=== PATIENT | female | born 1930 | race Hispanic/Latino ===

== ENCOUNTER 2018-02-06 17:36 | Emergency (ER) | payer MEDICARE, BC, MEDICAID ==
[2018-02-06 18:25] LABS: #Basophils 0.1 thou/uL (0.0-0.2); #Eosinphils 0.1 thou/uL (0.0-0.7); #Monocytes 0.3 thou/uL (0.11-0.59); #Neutrophils 2.8 thou/uL (1.40-6.50); %Basophils 1.4 % (0.0-1.0); %Eosinophils 2.5 % (0.0-10.0); %Lymphocytes 23.7 % (21.0-51.0); %Monocytes 7.8 % (0.0-10.0); %Neutrophils 64.7 % (42.0-75.0); Hemoglobin 11.6 g/dL (12.0-16.0); Mean Corpuscular HGB CONC 34.2 g/dL (32.0-36.0); Mean Corpuscular Hemoglobin 28.9 pg (27.0-31.0); Mean Corpuscular Volume 84.6 fL (78.0-98.0); Mean Platelet Volume 7.7 fL (7.4-10.4); Platelet Count 227 thou/uL (130-400); RBC Distribution Width 11.9 % (11.5-14.5); Red Blood Cell (RBC) Count 3.99 mill/uL (4.20-5.40); White Blood Cell (WBC) Count 4.3 thou/uL (4.8-10.8)
[2018-02-06 18:47] LABS: Bilirubin Moderate (Negative); Blood, Urine Negative (Negative); Clarity CLOUDY (Clear); Glucose, Urine (Dipstick) Negative (Negative); Leukocyte Trace (Negative); Nitrite Negative (Negative); Protein, Urine (Dipstick) 30 mg/dL (Neg-Trace); Specific Gravity, Urine 1.021 (1.002-1.036); pH, Urine 5.5 (5.0-9.0)
[2018-02-06 18:48] LABS: ALT (SGPT) 12 U/L (8-55); AST (SGOT) 14 U/L (5-34); Albumin 4.3 g/dL (3.4-4.8); Alkaline Phosphatase 93 U/L (40-150); Anion Gap 16 mmol/L (10-20); BUN (Urea Nitrogen) 39 mg/dL (9.8-20.1); Bilirubin, Total 0.6 mg/dL (0.2-1.2); CK (CPK) 211 U/L (29-168); Calc. Creatinine Clearance 0 mL/min (70-130); Calcium 9.2 mg/dL (7.8-10.44); Carbon Dioxide 21 mmol/L (23-31); Chloride 101 mmol/L (98-107); Estimated GFR-MDRD 17; Globulin 3.2 g/dL (2.4-3.5); Glucose 113 mg/dL (83-110); Lipase 37 U/L (8-78); Potassium 3.3 mmol/L (3.5-5.1); Protein, Total 7.5 g/dL (6.0-8.3); Sodium 135 mmol/L (136-145)
[2018-02-06 18:50] LABS: CKMB 5.8 ng/mL (0-6.6); Troponin I 0.015 ng/mL (< 0.028)
[2018-02-06 18:50] LABS: Bacteria/HPF None Seen HPF (None Seen); RBC/HPF 0-3 HPF (0-3); WBC/HPF 0-3 HPF (0-3)
[2018-02-06 18:51] LABS: Hyaline Casts/LPF 0-3 HYALINE CAST LPF (0-3 Hyaline); Manual Microscopic Reviewed? No Path Casts Seen; Renal Epithelial None Seen HPF (0-3); Transitional Epithelial NONE SEEN HPF (0-3)
--- NOTE | 2018-02-06 19:09 | RAD ---
CHEST ONE VIEW: History: Altered mental status. Comparison: 02-07-14 FINDINGS: There appears to be elevation of the right hemidiaphragm with air attenuation underneath the right he midiaphragm secondary to bowel air. There is atherosclerosis of the aorta. Chronic change lung parenc hyma without consolidation or mass. No pleural effusion. No pneumothorax or osseous abnormality. IMPRESSION: No acute cardiopulmonary process. POS: [facility]
--- NOTE | 2018-02-06 19:44 | CT ---
HEAD CT WITHOUT CONTRAST: History: Dementia, altered mental status. Comparison: None. FINDINGS: Calvarium is intact. Adequate aeration of the sinuses and mastoid air cells. No parenchymal hemorrhage. No extraaxial hematoma. No midline shift. Basilar cisterns are patent. Age appropriate atrophy. Cortical payne white matter differentiation preserved. There are chronic small vessel ischemic changes of the white matter. No evidence of hydrocephalus. Cavernous carotid atherosclerosis is noted. IMPRESSION: 1. No acute intracranial process. 2. Age appropriate atrophy. 3. Chronic small vessel ischemic changes of the white matter. POS: [facility]
== END 2018-02-06 19:58 | disposition home or self-care (01) ==
LOC: ERS 17:36
DX: R53.1 Weakness (principal); F03.90 Unspecified dementia, unspecified severity, without behavioral disturbance, psychotic disturbance, mood disturbance, and anxiety; N28.9 Disorder of kidney and ureter, unspecified
CPT/HCPCS: 36415; 51701; 70450; 71045; 80053; 81003; 81015; 82140; 82553; 83690; 83880; 84443; 84484; 85025; 93005; A4353

== ENCOUNTER 2018-08-25 13:17 | Emergency (ER) | payer MEDICARE, BC, MEDICAID ==
[2018-08-25 13:55] LABS: #Basophils 0.1 thou/uL (0.0-0.2); #Eosinphils 0.1 thou/uL (0.0-0.7); #Lymphocytes 1.7 thou/uL (1.20-3.40); #Monocytes 0.3 thou/uL (0.11-0.59); #Neutrophils 4.8 thou/uL (1.40-6.50); %Basophils 1.7 % (0.0-1.0); %Eosinophils 1.7 % (0.0-10.0); %Lymphocytes 23.9 % (21.0-51.0); %Monocytes 4.5 % (0.0-10.0); %Neutrophils 68.3 % (42.0-75.0); Hemoglobin 11.6 g/dL (12.0-16.0); Mean Corpuscular Hemoglobin 29.4 pg (27.0-31.0); Mean Corpuscular Volume 89.1 fL (78.0-98.0); Mean Platelet Volume 8.1 fL (7.4-10.4); Platelet Count 223 thou/uL (130-400); RBC Distribution Width 11.9 % (11.5-14.5); Red Blood Cell (RBC) Count 3.93 mill/uL (4.20-5.40); White Blood Cell (WBC) Count 7.1 thou/uL (4.8-10.8)
[2018-08-25 14:24] LABS: ALT (SGPT) 23 U/L (8-55); AST (SGOT) 18 U/L (5-34); Alkaline Phosphatase 50 U/L (40-150); Anion Gap 12 mmol/L (10-20); BUN (Urea Nitrogen) 25 mg/dL (9.8-20.1); Bilirubin, Total 0.7 mg/dL (0.2-1.2); Calc. Creatinine Clearance 0 mL/min (70-130); Calcium 9.7 mg/dL (7.8-10.44); Carbon Dioxide 26 mmol/L (23-31); Chloride 106 mmol/L (98-107); Estimated GFR-MDRD 35; Globulin 2.6 g/dL (2.4-3.5); Glucose 82 mg/dL (83-110); Lipase 33 U/L (8-78); Potassium 4.3 mmol/L (3.5-5.1); Protein, Total 6.6 g/dL (6.0-8.3); Sodium 140 mmol/L (136-145)
[2018-08-25 14:46] LABS: Bilirubin Negative (Negative); Blood, Urine Negative (Negative); Clarity CLEAR (Clear); Glucose, Urine (Dipstick) Negative (Negative); Leukocyte Negative (Negative); Nitrite Negative (Negative); Protein, Urine (Dipstick) Negative (Neg-Trace); Specific Gravity, Urine 1.019 (1.002-1.036); pH, Urine 6.5 (5.0-9.0)
--- NOTE | 2018-08-25 15:43 | CT ---
ABDOMEN AND PELVIC CT SCAN WITHOUT IV CONTRAST: 08/25/18 HISTORY: Abdominal pain and abdominal distention. FINDINGS: Small bilateral pleural effusions. Small to moderate pericardial effusion. Status post cholecystecto my. The visualized liver, pancreas, spleen and adrenal glands appear unremarkable. Small hiatal herni a. Multiple bilateral renal cysts including some hemorrhagic cysts with some postop calcific scarring in the lower pole region of the left kidney. Mild to moderate bilateral upper collecting system dila tation which could be secondary to the very severely dilated fecal filled rectum measuring up to 10 c m in diameter. No evidence for renal calculus or acute obstructing ureteral calculus. There is marked gaseous distention and dilatation of the right colon and transverse colon and portions of the sigmoi d colon with nondilated left colon and sigmoid colon with extensive diverticulosis without evidence f or acute diverticulitis. Minimal scattered free fluid. Stable right hip healed fracture with some res ultant deformity. IMPRESSION: 1. Very extensive solid fecal material within a markedly dilated rectum. Gaseous and minimal flu id distention and dilatation of the cecum and right colon, transverse colon as well as portions of th e sigmoid colon with nondilated left colon with extensive left colon and proximal sigmoid colon diver ticulosis without evidence for acute diverticulitis. Bilateral renal cysts including some hemorrhagic cysts without evidence for renal calculus. 2. Mild dilatation of the right and left renal upper collecting systems without an obstructing c alculus, possibly related to some compression from the severely dilated fecal filled rectum. Small bi lateral pleural effusions and small to moderate pericardial effusion. 3. Small hiatal hernia. 4. Minimal free intraperitoneal fluid. Other findings as above. POS: [facility]
--- NOTE | 2018-08-27 15:09 | EKG ---
Test Reason : Blood Pressure : / mmHG Vent. Rate : 070 BPM Atrial Rate : 070 BPM P-R Int : 220 ms QRS Dur : 110 ms QT Int : 452 ms P-R-T Axes : 039 036 021 degrees QTc Int : 488 ms Sinus rhythm with 1st degree A-V block with frequent Premature ventricular complexes Right bundle branch block Possible Inferior infarct , age undetermined Abnormal ECG Confirmed by SAQIB PANG ([id number]), movie editor SELENE VENTURA ([id number]) on 08/27/2018 3:08:58 PM Referred By: Confirmed By:SAQIB PANG
== END 2018-08-25 17:30 | disposition home or self-care (01) ==
LOC: ERS 13:17
DX: K64.4 Residual hemorrhoidal skin tags (principal); K59.00 Constipation, unspecified; Z79.899 Other long term (current) drug therapy
CPT/HCPCS: 36415; 51701; 74176; 80053; 81003; 83690; 85025; 93005; A4353

== ENCOUNTER 2018-08-30 14:05 | Emergency (ER) | payer MEDICARE, BC, MEDICAID ==
[2018-08-30] MEDS ORDERED: Fleet Enema 133 ML BOT PR SCH (14:45)
== END 2018-08-30 19:00 | disposition home or self-care (01) ==
LOC: ERS 14:05
DX: K59.00 Constipation, unspecified (principal); K64.9 Unspecified hemorrhoids
CPT/HCPCS: 99283

== ENCOUNTER 2018-11-21 20:53 | Inpatient (IN) | payer MEDICARE, BC, MEDICAID ==
[~2018-11-21 20:53] MED LIST: ISOVUE-370 76%-LOCM 1 ML ONE
[2018-11-21 21:39] LABS: #Basophils 0.1 thou/uL (0.0-0.2); #Eosinphils 0.1 thou/uL (0.0-0.7); #Lymphocytes 1.8 thou/uL (1.20-3.40); #Monocytes 0.4 thou/uL (0.11-0.59); #Neutrophils 3.3 thou/uL (1.40-6.50); %Basophils 0.9 % (0.0-1.0); %Lymphocytes 32.1 % (21.0-51.0); %Monocytes 6.4 % (0.0-10.0); %Neutrophils 58.6 % (42.0-75.0); Hemoglobin 10.9 g/dL (12.0-16.0); Mean Corpuscular HGB CONC 32.6 g/dL (32.0-36.0); Mean Corpuscular Hemoglobin 29.1 pg (27.0-31.0); Mean Corpuscular Volume 89.1 fL (78.0-98.0); Mean Platelet Volume 7.4 fL (7.4-10.4); Platelet Count 223 thou/uL (130-400); RBC Distribution Width 12.2 % (11.5-14.5); Red Blood Cell (RBC) Count 3.75 mill/uL (4.20-5.40); White Blood Cell (WBC) Count 5.6 thou/uL (4.8-10.8)
[2018-11-21 22:01] LABS: ALT (SGPT) 16 U/L (8-55); AST (SGOT) 21 U/L (5-34); Alkaline Phosphatase 51 U/L (40-150); Anion Gap 11 mmol/L (10-20); BUN (Urea Nitrogen) 19 mg/dL (9.8-20.1); Bilirubin, Total 0.5 mg/dL (0.2-1.2); Calc. Creatinine Clearance 0 mL/min (70-130); Calcium 9.3 mg/dL (7.8-10.44); Carbon Dioxide 31 mmol/L (23-31); Chloride 102 mmol/L (98-107); Estimated GFR-MDRD 43; Globulin 2.7 g/dL (2.4-3.5); Glucose 113 mg/dL (83-110); Potassium 3.2 mmol/L (3.5-5.1); Protein, Total 6.7 g/dL (6.0-8.3); Sodium 141 mmol/L (136-145)
--- NOTE | 2018-11-21 23:26 | CT ---
CT ABDOMEN WITH CONTRAST CT PELVIS WITH CONTRAST: DATE: 11/21/2018 10:32 PM HISTORY: 88-year-old female with abdominal distention, worsening. COMPARISON: 09/22/2018 TECHNIQUE: IV injection of iodinated contrast media: administered. Oral contrast media:Not administered FINDINGS: Again noted is the severe gaseous distention of the colon occupying a large portions of the abdominal cavity and pelvic cavity. The exception is that the descending colon is collapsed. There is gas and fluid within the lumen of the severely dilated portions of colon. This makes it difficult to eval uate for pneumoperitoneum. Again demonstrated is the circumferential mural thickening of the rectum, but this has improved. The associated perirectal fat stranding has also improved. There is prolapse of the rectum through the anus. Small pericardial effusion, slightly larger since previous CT. Abdominal organs are displaced and com pressed by the severe dilation of the colon. No other pathology identified involving the liver, spleen, pancreas, or adrenals. No hydronephrosis. Moderately large right renal cyst. Urinary bladder wall thickness at upper limits of normal. Diffuse anasarca. Heavy atherosclerotic callus location of abdominal aorta and iliac arteries without aneurysm. No small bowel dilation. IMPRESSION: 1. Severely distended colon. 2. Proctitis has improved since September. 3. Rectal prolapse.
[2018-11-22] MEDS ORDERED: Ondansetron ODT 4 MG TAB SL PRN (01:56)
[2018-11-22] MEDS ORDERED: Ondansetron PF 4 MG/2 ML Vial IVP PRN (01:56)
[2018-11-22] MEDS ORDERED: D5 1/2 NS w/20 mEq KCL 1,000 ML IV SCH (02:00)
[2018-11-22] MEDS ORDERED: Acetaminophen 325 MG TAB PO PRN (02:28)
[2018-11-22] MEDS ORDERED: Acetaminophen 500 MG TAB PO PRN (02:29)
[2018-11-22] MEDS ORDERED: ALPRAZolam 0.5 MG TAB PO PRN (02:29)
[2018-11-22 04:11] LABS: #Basophils 0.1 thou/uL (0.0-0.2); #Eosinphils 0.1 thou/uL (0.0-0.7); #Lymphocytes 1.4 thou/uL (1.20-3.40); #Monocytes 0.5 thou/uL (0.11-0.59); #Neutrophils 4.5 thou/uL (1.40-6.50); %Basophils 0.9 % (0.0-1.0); %Eosinophils 2.3 % (0.0-10.0); %Lymphocytes 21.5 % (21.0-51.0); %Neutrophils 68.3 % (42.0-75.0); Hemoglobin 10.9 g/dL (12.0-16.0); Mean Corpuscular HGB CONC 32.5 g/dL (32.0-36.0); Mean Corpuscular Hemoglobin 28.9 pg (27.0-31.0); Mean Corpuscular Volume 89.1 fL (78.0-98.0); Platelet Count 215 thou/uL (130-400); RBC Distribution Width 12.1 % (11.5-14.5); Red Blood Cell (RBC) Count 3.77 mill/uL (4.20-5.40); White Blood Cell (WBC) Count 6.5 thou/uL (4.8-10.8)
[2018-11-22 04:37] LABS: Anion Gap 13 mmol/L (10-20); BUN (Urea Nitrogen) 18 mg/dL (9.8-20.1); Calc. Creatinine Clearance 28 mL/min (70-130); Calcium 9.1 mg/dL (7.8-10.44); Carbon Dioxide 23 mmol/L (23-31); Chloride 106 mmol/L (98-107); Estimated GFR-MDRD 48; Glucose 117 mg/dL (83-110); Potassium 3.4 mmol/L (3.5-5.1); Sodium 140 mmol/L (136-145)
[2018-11-22] MEDS: Levothyroxine Sodium 75 MCG TAB PO SCH (05:39)
--- NOTE | 2018-11-22 05:39 | HP ---
PRIMARY CARE PHYSICIAN: CHIEF COMPLAINT: Abdominal pain. HISTORY OF PRESENT ILLNESS: This is an 88-year-old female with past medical history of Carroll syndrome, hypothyroidism, dementia, depression, and hypertension, came to the hospital after having abdominal distention, transferred from [facility], it looks like it has been going on for the past six months and had worsen in the past 2 weeks till the point that today is very distended. The family denies any nausea or vomiting. No other significant symptoms were reported. The patient is not able to give any further information. REVIEW OF SYSTEMS: Unable to obtain. The patient has dementia, not able to give a history. PAST MEDICAL HISTORY: As mentioned in the HPI. PAST SURGICAL HISTORY: The patient is unable to give history. PSYCHIATRIC HISTORY: The patient has dementia. 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 KNOWN ALLERGIES: No known drug allergies. REPORTED MEDICATIONS: 1. Donepezil. 2. Hydrochlorothiazide. 3. Levothyroxine. 4. Losartan-hydrochlorothiazide. 5. Omeprazole. 6. Xanax. 7. Escitalopram. 8. Seroquel. 9. Trazodone. 10. Acetaminophen. 11. Fleet enema. 12. Anusol. PHYSICAL EXAMINATION: VITAL SIGNS: Blood pressure 176/92 with heart rate 66, respiratory rate was 19, oxygen saturation was 97% on room air, and temperature was 97.8. GENERAL APPEARANCE: The patient is confused. The patient has dementia. HEENT: Eyes, normal conjunctivae. Moist oral mucosa. Anicteric. No JVD. RESPIRATORY: Bilateral air entry. No rales. No wheezes. Symmetric expansion. CARDIOVASCULAR: Normal rate. Regular rhythm. No murmurs. No gallops. No edema. ABDOMEN: Very distended with tympanic sounds. Bowel sounds are present, tympanic. MUSCULOSKELETAL: Baseline range of motion and strength. SKIN: Warm and intact. No pallor. No rash. No redness. Capillary refill seems to be intact. NEURO: No evidence of any new focal weakness. Unable to fully explore. The patient has dementia. PSYCH: The patient has dementia. The patient is confused. IMAGING: EKG was reviewed. The patient has normal sinus rhythm with a rate of 65 with first-degree AV block, incomplete RBBB. Abdomen and pelvis CT was done. The patient has severely distended colon. Proctitis has improved since September and rectal prolapse. LABORATORY DATA: Reviewed. The patient has white count 5.6, hemoglobin 10.9, MCV 89.1, and platelet count 223. Sodium 141, potassium 3.2, chloride 102, carbon dioxide 31, anion gap 11, creatinine 1.19, GFR 43, glucose 113, calcium 9.3, and total bilirubin 0.5. LFTs were negative. Albumin 4.0. ASSESSMENT AND PLAN: The patient will be placed in the hospital with following medical problems; 1. 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 The patient has severe distention today. Dr. Perez was consulted and will see the patient in the morning. We will follow recommendations. 2. History of dementia. The patient will need supportive care as inpatient. 3. Hypothyroidism. Continue hormone replacement. 4. History of depression. This is chronic and seems to be stable. Reconcile home medications. Not evident at this point. 5. History of gastroesophageal reflux disease. We will reconcile home medications. 6. Uncontrolled hypertension with systolic blood pressure of 176 over 92 diastolic. Reconcile home medications. Might need IV p.r.n. medication for optimal control. 7. Deep venous thrombosis prophylaxis. Job ID: [id number]
[2018-11-22] MEDS ORDERED: Non-Formulary Item 1 EACH (Omeprazole [Omeprazole] 40 MG) PO SCH (09:00)
[2018-11-22] MEDS: Cyanocobalamin (Vitamin B-12) 1,000 MCG TAB PO SCH (11:43)
[2018-11-22] MEDS: Escitalopram Oxalate 20 mg Tablet PO SCH (11:44)
[2018-11-22] MEDS: Polyethylene Glycol 3350 17 GM Packet PO SCH (11:44)
--- NOTE | 2018-11-22 13:09 | CON ---
DATE OF CONSULTATION: HISTORY OF PRESENT ILLNESS: An 88-year-old female, who speaks little Irish. History is as outlined. She is from the senior living. She is a full code, presented here with abdominal pain, distention. She had been in the hospital here numerous times. Last discharge summary said that she had multiple medication problems. She was in September in the ER, where a CT abdomen showed evidence of extensive impacted rectum. proctitis, colitis diagnoses were made. It is unclear what transpired. The patient now comes to the hospital in November, two months later on, with similar problems. There are no family members present at the bedside. PAST MEDICAL HISTORY: Pertinent otherwise for depression, previous [place]'s, hypothyroidism, anxiety. PAST SURGICAL HISTORY: Previous surgeries apparently, none. HABITS: No alcohol or tobacco. HOME MEDICATIONS: Includes, 1. Zoloft 50. 2. Seroquel 12.5. 3. Potassium. 4. MiraLax. 5. Omeprazole. 6. Losartan. 7. Synthroid 75. 8. Hydrochlorothiazide. 9. Nexium 40. 10. Celexa 20. 11. Donepezil 10. 12. Cardizem 180. 13. B12. 14. Xanax. ALLERGIES: NO ALLERGIES. PHYSICAL EXAMINATION: GENERAL: She is in no distress. VITAL SIGNS: Temperature 97, pulse 67, saturations 97% on room air, blood pressure 160/93. CHEST: No wheezing or crackles. CARDIAC: Normal S1, S2. No gallops. ABDOMEN: Distended, soft. LABORATORY DATA: White count 6000, H and H 10 and 33, platelet count 215. Lytes are normal. ASSESSMENT: Abdominal distention consistent with rectal prolapse, Carroll's, advanced age, and dementia. PLAN: Suggest GI consultation. Pulmonary Critical Care will follow while in the MICU. At this stage, continue hydration. Supportive care. Get additional information from family as they arrive. Consultation note, 70 minutes, 50% direct patient care. Job ID: [id number]
[2018-11-22] MEDS ORDERED: Midazolam HCl 2 mg/2 ml Vial ONE (13:31)
[2018-11-22] MEDS ORDERED: Ketamine 50 MG/ML (10ML VIAL) ONE (13:31)
[2018-11-22] MEDS: Hydrochlorothiazide 25 MG TAB PO SCH (14:58)
[2018-11-22] MEDS ORDERED: PROPOFOL 200 MG/20 ML VIAL ONE (15:28)
[2018-11-22] MEDS ORDERED: Labetalol HCl 100 MG/20 ML VIAL ONE (15:28)
[2018-11-22] MEDS ORDERED: ePHEDrine 50 MG/ML VIAL ONE (15:28)
--- NOTE | 2018-11-22 15:43 | OP ---
DATE OF PROCEDURE: 11/22/2018 PREPROCEDURE DIAGNOSES: 1. Abdominal distention. 2. Abdominal films consistent with [place]'s with air down to the rectum. 3. Ineffectual decompression with rectal tube and rectal exam. She did not respond to neostigmine. PROCEDURES PERFORMED: Colonoscopy with decompression and placement of rectal decompression tube. RECOMMENDATIONS: 1. Keep rectal tube drained to gravity. If it falls out, have another rectal tube just placed at the bedside. 2. I think her drug regimen for dementia is going to be pared back as she has no mobility at all and her medications are basically causing colonic paralysis. These are going to need to be adjusted back. 3. The patient has been getting out of bed with physical therapy moving side to side. 4. Low residue diet may help prevent distention. ANESTHESIA: TIVA. PROCEDURE IN DETAIL: The patient was informed of the risks, benefits, and possible complications of endoscopy including perforation, reaction to medication, and aspiration. Informed consent was obtained. The patient was brought to endoscopy suite, where we noted a tight sphincter. Two-finger rectal exam was performed under sedation, dilated the sphincter somewhat and this did help with passing of gas. The endoscope was advanced through the anal canal and into the colon. There was a massively distended sigmoid and left-sided colon. The scope was further advanced to the hepatic flexure with the colon seen to be normal in size. There was no evidence of colitis, ischemia, or pseudomembranes. The scope was slowly removed with decompression of colon. A guidewire was left in place and a decompression tube was placed over the guidewire, and the guidewire was removed. The scope was removed. The patient tolerated the procedure well with no complications. This exam is not adequate for polyp detection as it was an unprepped colonoscopy and the goal was for colon decompression. Job ID: [id number]
--- NOTE | 2018-11-22 16:01 | CON ---
DATE OF CONSULTATION: 11/22/2018 REASON FOR CONSULTATION: Carroll's. HISTORY OF PRESENT ILLNESS: Ms. Velasco is an 88-year-old female, apparently with significant dementia, who stays in care home. She apparently presented to the emergency room from the care home with progressive abdominal distention and poor p.o. intake. Other than that, not much history is available. On reviewing her chart, she was in the emergency room on 08/25 with abdominal distention. She had scans that showed abdominal distention similar to today's admission and ultimately she was discharged from the emergency room. At that time, she had a fecal impaction. She was seen in the emergency room on 08/30/2018 again for constipation. At that time, she was also discharged and then had a CAT scan of the abdomen and pelvis apparently as an outpatient on 09/22/2018 showing the same Carroll's like picture and then again last night. The emergency room note placed by the ER physician states that this has been ongoing for about 6 months and the family states it has been worse for the past 6 weeks. REVIEW OF SYSTEMS: Unable to be obtained secondary to dementia. PAST MEDICAL HISTORY: Hypothyroidism, B12 deficiency, dementia, depression, hypertension, reflux, and constipation. PAST SURGICAL HISTORY: Unknown. SOCIAL HISTORY: She lives in a care home. ALLERGIES: UNKNOWN. MEDICATIONS: At the care home include, 1. Trazodone. 2. Ultram. 3. Zoloft. 4. Seroquel. 5. Potassium chloride. 6. MiraLAX. 7. Omeprazole. 8. Hyzaar. 9. Synthroid. 10. Hydrochlorothiazide. 11. Nexium. 12. Escitalopram. 13. Donepezil. 14. Diltiazem. 15. B12. 16. Acetaminophen. 17. Alprazolam. Medications here, 1. Tylenol. 2. Xanax. 3. B12. 4. Aricept. 5. Lexapro. 6. Hyzaar. 7. Synthroid. 8. Zofran. 9. Protonix. 10. MiraLAX. 11. Seroquel. PHYSICAL EXAMINATION: GENERAL: She is resting comfortably in bed. The nurses note she has been in no overt distress. VITAL SIGNS: Temperature is 98.6, blood pressure 164/91, pulse is 62, blood pressure is 164/91. ABDOMEN: Protuberant and tympanitic. It is tight. Bowel sounds are scant. LABORATORY DATA: White count 6.5, it was 5.6 last night; hemoglobin 10.9; platelet count 215. Sodium 140, potassium 3.4, BUN and creatinine 18 and 1.08. Liver function tests are normal. Albumin is 4. Urinalysis, moderate urobilinogen and no bacteria seen. CAT scan reviewed by myself. She has gas and air down to the rectum. Previous CAT scan showed mural thickening in the rectum, but this was improved on this study. I went back in to do a rectal exam on the patient. On her rectal exam, she has a very tight stone, but no overt stricture. There is no impaction noted. I placed two fingers in the rectum, tried to split that and let the gas pass, but this would not do so. I placed a rectal tube and really it would drain but very slowly with distention persisting. 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 RECOMMENDATIONS: 1. Flexible sigmoidoscopy with decompression. 2. After this, she is going to need a bowel regimen with MiraLAX daily. Low residue, low carb diet. Her medications need to be changed as she is on multiple medicines that inhibit colonic motility and she is going to need a bowel regimen where she gets to do a suppository daily. Job ID: [id number]
[2018-11-22] MEDS: D5 1/2 NS w/20 mEq KCL 1,000 ML IV SCH (17:58)
--- NOTE | 2018-11-22 17:59 | RAD ---
Radiograph abdomen 2 views: DATE: 11/22/2018 Time: 5:30 PM HISTORY: 88-year-old female with Carroll's syndrome. 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 There continues to be gase ous distention of bowel occupying the entire abdomen, apparently colon, but this has somewhat improved. IMPRESSION: 1. Evidence for Carroll syndrome. 2. Mild interval improvement in the severe gaseous colonic distention upon placement of rectal cathet er.
[2018-11-22] MEDS ORDERED: Donepezil HCl 10 MG TAB PO SCH (21:00)
[2018-11-22] MEDS: traZODone HCl 50 MG TAB PO SCH (21:10)
[2018-11-23 06:22] LABS: Anion Gap 12 mmol/L (10-20); BUN (Urea Nitrogen) 12 mg/dL (9.8-20.1); Calc. Creatinine Clearance 31 mL/min (70-130); Calcium 8.6 mg/dL (7.8-10.44); Carbon Dioxide 26 mmol/L (23-31); Chloride 105 mmol/L (98-107); Estimated GFR-MDRD 53; Glucose 92 mg/dL (83-110); Magnesium 1.5 mg/dL (1.6-2.6); Phosphorus 2.4 mg/dL (2.3-4.7); Potassium 3.5 mmol/L (3.5-5.1); Sodium 139 mmol/L (136-145)
[2018-11-23] MEDS: Levothyroxine Sodium 75 MCG TAB PO SCH (06:29)
--- NOTE | 2018-11-23 07:37 | CON ---
DATE OF CONSULTATION: ADDENDUM: There was an attempt to give her neostigmine earlier today 2 g that had no effect. With this and the inability to get her colon decompressed with the rectal tube or digital exam, I have recommended we proceed with endoscopic decompression, which will be more comfortable for her as well. This should be done today to decrease the risk of perforation or bowel ischemia from overdistention. Job ID: [id number]
--- NOTE | 2018-11-23 09:28 | PDOC.HOSPP ---
- Subjective Encounter Date: 11/23/18 Encounter Time: 09:24 Subjective: Doing much better. Denies pain. Says everything is fine. - Objective Vital Signs & Weight: Vital Signs (12 hours) Temp 11/23/18 07:23 97.7 F 11/23/18 03:35 98.5 F 11/23/18 00:00 98.5 F Weight Admit Weight 113 lb Weight 107 lb 3.2 oz Most Recent Monitor Data Heart Rate from ECG 59 NIBP 160/88 NIBP BP-Mean 112 Respiration from ECG 14 SpO2 98 I&O: 11/22/18 11/23/18 11/24/18 06:59 06:59 06:59 Intake Total 0 100 Output Total 0 300 Balance 0 -200 Result Diagrams: 11/22/18 03:51 11/23/18 05:38 Hospitalist ROS - Medication Medications: Active Medications Generic Name Dose Route Start Last Admin Trade Name Freq PRN Reason Stop Dose Admin Cyanocobalamin 1,000 mcg 11/22/18 09:00 11/22/18 11:43 Vitamin B-12 PO Not Given DAILY [facility] Escitalopram Oxalate 20 mg 11/22/18 09:00 11/22/18 11:44 Lexapro PO Not Given DAILY MICHAEL HCTZ/Losartan Potassium 1 tab 11/22/18 09:00 11/22/18 14:58 Hyzaar 50/12.5 PO Not Given DAILY [facility] Hydrochlorothiazide 12.5 mg 11/22/18 09:00 11/22/18 14:58 Hydrochlorothiazide PO Not Given DAILY [facility] Potassium Chloride/Dextrose/Sod Cl 1,000 mls @ 70 mls/hr 11/22/18 14:30 11/22 17:58 D5 1/2 Ns W/20 Meq Kcl IV 1,000 mls .[id number] MICHAEL Administration Levothyroxine Sodium 75 mcg 11/22/18 06:00 11/23/18 06:29 Synthroid PO Not Given 0600 MICHAEL Pantoprazole Sodium 40 mg 11/22/18 09:00 11/22/18 11:44 Protonix PO Not Given DAILY [facility] Polyethylene Glycol 17 gm 11/22/18 09:00 11/22/18 11:44 Miralax PO Not Given DAILY [facility] Quetiapine Fumarate 12.5 mg 11/22/18 09:00 11/22/18 11:44 Seroquel PO Not Given DAILY [facility] Trazodone HCl 100 mg 11/22/18 21:00 11/22/18 21:10 Desyrel PO 100 mg HS MICHAEL Administration - Exam General Appearance: NAD, awake alert Heart: RRR, no murmur, no gallops, no rubs, normal peripheral pulses Respiratory: CTAB, no wheezes, no rales, no ronchi, normal chest expansion, no tachypnea, normal percussion Gastrointestinal: non-tender, distended Gastrointestinal - other findings: hypertympanic. Extremities: no cyanosis, no clubbing, no edema Musculoskeletal: normal tone Psychiatric: normal affect, not oriented Hosp A/P (1) [place]'s syndrome Code(s): K59.8 - OTHER SPECIFIED FUNCTIONAL INTESTINAL DISORDERS Status: Acute (2) Abdominal distention Code(s): R14.0 - ABDOMINAL DISTENSION (GASEOUS) Status: Acute (3) Dementia Code(s): F03.90 - UNSPECIFIED DEMENTIA WITHOUT BEHAVIORAL DISTURBANCE Status: Acute (4) Hypomagnesemia Code(s): E83.42 - HYPOMAGNESEMIA Status: Acute (5) Hypokalemia Code(s): E87.6 - HYPOKALEMIA Status: Acute (6) HTN (hypertension) Code(s): I10 - ESSENTIAL (PRIMARY) HYPERTENSION Status: Acute - Plan Decompressed endoscopically yesterday. Much better today, but still distended. Rectal tube in place. Discussed with patient's GD/POA. Affirmed DNAR. Not aware of her medical history. Will stop her dementia meds. Address the mag, potassium. PT consult. Can move to floor if ok with GI. Palliative to come by again. Concerning that this will be chronic/recurrent and there will be little to do at that time.
--- NOTE | 2018-11-23 09:33 | PDOC.FMACP ---
Advance Care Planning - Problem (1) Carroll's syndrome Status: Acute Code(s): K59.8 - OTHER SPECIFIED FUNCTIONAL INTESTINAL DISORDERS (2) Abdominal distention Status: Acute Code(s): R14.0 - ABDOMINAL DISTENSION (GASEOUS) (3) Dementia Status: Acute Code(s): F03.90 - UNSPECIFIED DEMENTIA WITHOUT BEHAVIORAL DISTURBANCE (4) Hypomagnesemia Status: Acute Code(s): E83.42 - HYPOMAGNESEMIA (5) Hypokalemia Status: Acute Code(s): E87.6 - HYPOKALEMIA (6) HTN (hypertension) Status: Acute Code(s): I10 - ESSENTIAL (PRIMARY) HYPERTENSION - Note Participants: patient, family Summary: Advanced Care Planning was discussed with the patient's granddaughter who is her POA. The diagnosis, prognosis and goals of care were discussed. Appropriate forms and documentation to accomplish the goals of care were discussed. All questions were answered. The Palliative Care Team will be engaged to assist with completion of any outstanding forms that are needed. Also completed the OOH DNR. Time Spent (mins): 17
--- NOTE | 2018-11-23 09:35 | PRG ---
DATE OF SERVICE: 11/23/2018 SUBJECTIVE: This morning, appears to be in no distress. OBJECTIVE: VITAL SIGNS: Temperature 97, saturations 100%, blood pressure 160/ 80, and respiratory rate 18. CHEST: No wheezing or crackles. CARDIAC: Normal S1 and S2. No gallops. ABDOMEN: No masses. IMPRESSION AND PLAN: Evidence of Carroll, status post colonoscopy and decompression with rectal tube in place. Pulmonary/Critical Care will follow while in the MICU,,_ support care, PT, and nutrition. Job ID: [id number] MTDD
[2018-11-23] MEDS: Hydrochlorothiazide 25 MG TAB PO SCH (10:33)
[2018-11-23] MEDS: Escitalopram Oxalate 20 mg Tablet PO SCH (10:33)
[2018-11-23] MEDS: Polyethylene Glycol 3350 17 GM Packet PO SCH (10:33)
[2018-11-23] MEDS: Cyanocobalamin (Vitamin B-12) 1,000 MCG TAB PO SCH (10:34)
[2018-11-23] MEDS: D5 1/2 NS w/20 mEq KCL 1,000 ML IV SCH ×2 (10:34→22:08)
[2018-11-23] MEDS ORDERED: Prevnar 13-Val Conj/PF 0.5 ML SYRINGE IM ONE (11:15)
--- NOTE | 2018-11-23 15:40 | PRG ---
DATE OF SERVICE: 11/23/2018 SUBJECTIVE: Ms. Velasco is passing liquid stool from her rectum. She is less distended. She has no abdominal pain. OBJECTIVE: VITAL SIGNS: Temperature is 98.8, pulse 63, and blood pressure 123/69. GENERAL: She is in no acute distress, demented, but awake and responsive. LUNGS: Clear to auscultation bilaterally. HEART: Regular rate and rhythm without murmur. ABDOMEN: Moderately distended, but soft. Bowel sounds are active. EXTREMITIES: No lower extremity edema. RECTAL: Performed. I was unable to get her to pass any air with the rectal exam and her anal sphincter tone is pretty tight, but the rectal tube remains in place. IMPRESSION: [place] syndrome. Clinically, she has improved status post decompression and placement of rectal tube. She is now still moderately distended, but less distended than previously and her abdomen is soft and she has active bowel sounds. She is passing stool. RECOMMENDATIONS: 1. Continue osmotic laxative. 2. If she fails to progress further tomorrow, we can add a stimulant laxative with Dulcolax. For now, she is passing stools and I think we can hold off stimulant laxatives. 3. Check an abdominal x-ray tomorrow morning. 4. Advance to clear liquid diet and if she tolerates that well, then advance to a full liquid diet. Job ID: [id number]
[2018-11-23] MEDS: traZODone HCl 50 MG TAB PO SCH (20:17)
[2018-11-24 04:29] LABS: Anion Gap 8 mmol/L (10-20); BUN (Urea Nitrogen) 9 mg/dL (9.8-20.1); Calc. Creatinine Clearance 31 mL/min (70-130); Calcium 8.5 mg/dL (7.8-10.44); Carbon Dioxide 26 mmol/L (23-31); Chloride 106 mmol/L (98-107); Estimated GFR-MDRD 55; Glucose 84 mg/dL (83-110); Potassium 4.1 mmol/L (3.5-5.1); Sodium 136 mmol/L (136-145)
[2018-11-24] MEDS: Levothyroxine Sodium 75 MCG TAB PO SCH (06:18)
--- NOTE | 2018-11-24 09:11 | PRG ---
DATE OF SERVICE: 11/24/2018 SUBJECTIVE: Remains on the B-side. There is no distress. OBJECTIVE: VITAL SIGNS: Temperature 98, blood pressure 100/56, pulse 50, respiratory rate 18. CHEST: Reveals no wheezing or crackles. CARDIAC: Normal S1 and S2. No gallops. ABDOMEN: No masses. The patient is now a DNR. LABORATORY DATA: Labs shows lytes are normal. IMPRESSION: Carroll is status post decompression and colonoscopy. PLAN: Diet is to be increased to supportive care. Pulmonary will follow while on the B-side. Job ID: [id number]
[2018-11-24] MEDS: Hydrochlorothiazide 25 MG TAB PO SCH (09:31)
[2018-11-24] MEDS: Escitalopram Oxalate 20 mg Tablet PO SCH (09:31)
[2018-11-24] MEDS: Cyanocobalamin (Vitamin B-12) 1,000 MCG TAB PO SCH (09:31)
[2018-11-24] MEDS: Polyethylene Glycol 3350 17 GM Packet PO SCH (09:31)
--- NOTE | 2018-11-24 11:11 | RAD ---
XR Abdomen 1 View/KUB HISTORY: Abdominal distention COMPARISON: 11/21/2018 CT study. FINDINGS: Marked colonic distention is again demonstrated, it is somewhat diminished as compared to t he prior CT study. Bones are demineralized. There is scoliosis and arthritic changes spine. Catheter seen overlying the pelvis. IMPRESSION: Some decrease in the generalized gaseous distention of the colon as compared to the prior exam.
[2018-11-24] MEDS: D5 1/2 NS w/20 mEq KCL 1,000 ML IV SCH (12:38)
[2018-11-24 12:43] VITALS: BP 163/83
[2018-11-24 15:40] VITALS: TEMP 98.4
--- NOTE | 2018-11-24 16:04 | PRG ---
DATE OF SERVICE: 11/24/2018 SUBJECTIVE: Ms. Velasco has reported bloating to her granddaughters, but otherwise no acute complaints of pain or nausea or vomiting. She had 3 liquidy bowel movements yesterday. OBJECTIVE: VITAL SIGNS: Temperature 98.2, blood pressure 177/126, and pulse 77. GENERAL: She is in no acute distress. Awake and responsive. LUNGS: Clear to auscultation bilaterally. HEART: Regular rate and rhythm without murmur. ABDOMEN: Mildly to moderately distended, but it is soft to palpation. Her bowel sounds are present. EXTREMITIES: No lower extremity edema. IMPRESSION: 1. Carroll syndrome, improved clinically, now passing stools with less abdominal distention. Her abdomen is soft and her bowel sounds are active. She has been tolerating a clear liquid diet. 2. Dementia. She has end-stage dementia, has been bed-bound. She has ultimately elected for hospice care after consultation with her family and palliative care team. RECOMMENDATIONS: 1. Advance to a full liquid diet. 2. Continue pantoprazole daily. 3. Continue MiraLAX daily. 4. If her abdominal distention worsens again, she could give a trial of metoclopramide, however, potential neurologic interaction with the quetiapine would have to be monitored for. 5. Discharge to hospice is planned for today. I will sign off for now. Please call if GI can be of assistance. Job ID: [id number]
--- NOTE | 2018-11-25 10:15 | DIS ---
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 2. End-stage dementia. 3. Hypomagnesemia. 4. Hypokalemia. 5. Hypertension. CONSULTS: 1. Gastroenterology. 2. Pulmonary Critical Care. PROCEDURES: Endoscopic decompression of the colon with placement of rectal tube. HISTORY OF PRESENT ILLNESS: This patient is an 88-year-old female with a history of Carroll syndrome, who presented via the emergency department with severe colonic distention. In the Emergency Department, where she had been transferred from a [facility], appears to have been progressive over 6 months and much more severe over the past couple of weeks prior to the time of her admission. CT of the abdomen showed severely distended colon, some improvement of proctitis from September and some rectal prolapse. GI recommended aggressive bowel regimen and neostigmine was attempted that had no significant effect. Given the degree of distention, endoscopic decompression of the colon was performed on 11/22 and a rectal tube was placed for decompression as well. There was some concern that some of her medications may have been contributing to her situation and these were discontinued. The patient subsequently had persistent bowel distention with some improvement following the procedure. The patient's mental status made it difficult to fully assess the patient because of her dementia. She was ultimately put back on a diet; however, she had persistent distention. Ultimately, the Palliative Care team met with the family. I had met with the patient's power of ip technology transactions attorney and it was clear that the patient was to be a DNR. Palliative Care further discussed the situation, where they noted the patient had been clear previously that she had not been interested in pursuing aggressive medical treatment and the plan of the family was ultimately to send the patient back to the nursing facility on [facility]. I spoke with the hospice patient care secretary as well and ultimately the determination was made to discharge. PHYSICAL EXAMINATION: VITAL SIGNS: On the day of discharge, temperature was 98.4, BP was 157/75, pulse was 73, respirations 25, O2 saturation 97%. GENERAL: She was awake, but not terribly talkative. HEART: Regular rate and rhythm. LUNGS: Clear. ABDOMEN: Persistently distended and hypertympanic with diminished bowel sounds. EXTREMITIES: No edema. DISPOSITION: The patient is discharged back to the nursing facility. DIET: She is on a regular diet. ACTIVITY: As tolerated. DISCHARGE MEDICATIONS: She will remain on; 1. MiraLAX 17 g daily. 2. Hyzaar. 3. Synthroid. 4. Xanax. 5. Seroquel. 6. Donepezil. 7. Trazodone. 8. Acetaminophen. 9. Escitalopram. 10. Omeprazole. 11. Hydrochlorothiazide. 12. B12. FOLLOWUP: She will be followed by Dr. Dwyer and she can return to the hospital should she have any problems prior to that time. TIME SPENT: Total time in discharge planning activities including [id number] time with the patient is 34 minutes. Job ID: [id number]
--- NOTE | 2018-11-26 15:27 | EKG ---
Test Reason : Blood Pressure : / mmHG Vent. Rate : 065 BPM Atrial Rate : 065 BPM P-R Int : 242 ms QRS Dur : 116 ms QT Int : 462 ms P-R-T Axes : 043 104 013 degrees QTc Int : 480 ms Sinus rhythm with 1st degree A-V block Right bundle branch block Cannot rule out Inferior infarct , age undetermined Abnormal ECG Confirmed by SHUBHAM MURILLO, LUZ ([id number]), film and video editor SELENE VENTURA ([id number]) on 11/26/2018 3:26:44 PM Referred By: Confirmed By:LUZ JALLOH MD
== END 2018-11-24 18:40 | disposition hospice, home (50) | DRG 392 ==
LOC: ERS 20:53 → IMCU/EMU 11-22 01:37
PROVIDERS: ADMIT Hospitalist; ATTEND Hospitalist
PROC: 0D9P80Z Drainage of Rectum with Drainage Device, Via Natural or Artificial Opening Endoscopic (ICD-10-PCS; principal; 2018-11-22)
DX: K59.8 Other specified functional intestinal disorders (principal); E03.9 Hypothyroidism, unspecified; F03.90 Unspecified dementia, unspecified severity, without behavioral disturbance, psychotic disturbance, mood disturbance, and anxiety; F32.9 Major depressive disorder, single episode, unspecified; Z51.5 Encounter for palliative care; Z66 Do not resuscitate; I10 Essential (primary) hypertension; K21.9 Gastro-esophageal reflux disease without esophagitis; E83.42 Hypomagnesemia; E87.6 Hypokalemia; Z74.01 Bed confinement status
CPT/HCPCS: 36415; 74018; 74019; 74177; 80048; 80053; 83735; 84100; 85025; 93005; 96361; 96374; J2250; J2704; J3475; J3490; Q9966

== ENCOUNTER 2018-11-25 19:02 | Emergency (ER) | payer MEDICARE, BC, MEDICAID ==
--- NOTE | 2018-11-25 20:31 | CT ---
CT OF BRAIN PERFORMED WITHOUT CONTRAST ENHANCEMENT: 11/25/18 HISTORY: Fall. Head injury. COMPARISON: 02/06/18 exam. There is generalized ventricular and sulcal prominence with decreased attenuation of the periventricu lar white matter consistent with some chronic white matter change. There are no signs of intracerebra l hemorrhage or extra-axial fluid collections. The mastoid air cells and visualized sinuses are clear . A left frontal scalp laceration is present. IMPRESSION: No acute intracranial abnormalities. POS: [facility]
--- NOTE | 2018-11-25 20:33 | CT ---
CT OF CERVICAL SPINE PERFORMED WITHOUT CONTRAST ENAHNCEMENT: 11/25/18 HISTORY: Neck pain, status post fall. The bones are demineralized. Vertebral bodies maintain normal height with fairly good preservation o f the disc levels. Some mild disc narrowing is seen at C5-6 and C6-7. The facets show pronounced dege nerative change but are in normal alignment. There is no CT evidence for fracture. The lung apices ar e clear of infiltrates. There are bilateral pleural effusions identified. IMPRESSION: No CT evidence of fracture of the cervical spine. POS: [facility]
[2018-11-25] MEDS ORDERED: Lidocaine 1% w/Epinephrine 1:100K 20 ML VIAL ONE ×2 (22:31→23:20)
== END 2018-11-26 00:08 ==
LOC: ERS 19:02
DX: S01.81XA Laceration without foreign body of other part of head, initial encounter (principal); E03.9 Hypothyroidism, unspecified; I10 Essential (primary) hypertension; F03.90 Unspecified dementia, unspecified severity, without behavioral disturbance, psychotic disturbance, mood disturbance, and anxiety; F32.9 Major depressive disorder, single episode, unspecified; K21.9 Gastro-esophageal reflux disease without esophagitis; Z79.899 Other long term (current) drug therapy; Z23 Encounter for immunization; W05.0XXA Fall from non-moving wheelchair, initial encounter
CPT/HCPCS: 70450; 72125; J2001

== ENCOUNTER 2018-11-26 03:52 | Inpatient (IN) | payer MEDICARE, BC, MEDICAID ==
[2018-11-26 06:48] LABS: #Basophils 0.1 thou/uL (0.0-0.2); #Eosinphils 0.2 thou/uL (0.0-0.7); #Lymphocytes 1.8 thou/uL (1.20-3.40); #Monocytes 0.5 thou/uL (0.11-0.59); #Neutrophils 4.8 thou/uL (1.40-6.50); %Basophils 0.7 % (0.0-1.0); %Eosinophils 3.2 % (0.0-10.0); %Lymphocytes 24.5 % (21.0-51.0); %Monocytes 6.7 % (0.0-10.0); %Neutrophils 64.8 % (42.0-75.0); Hemoglobin 11.6 g/dL (12.0-16.0); Mean Corpuscular HGB CONC 33.8 g/dL (32.0-36.0); Mean Corpuscular Hemoglobin 29.5 pg (27.0-31.0); Mean Corpuscular Volume 87.1 fL (78.0-98.0); Mean Platelet Volume 7.8 fL (7.4-10.4); Platelet Count 215 thou/uL (130-400); Red Blood Cell (RBC) Count 3.93 mill/uL (4.20-5.40); White Blood Cell (WBC) Count 7.3 thou/uL (4.8-10.8)
[2018-11-26 07:12] LABS: ALT (SGPT) 11 U/L (8-55); AST (SGOT) 18 U/L (5-34); Albumin 3.5 g/dL (3.4-4.8); Alkaline Phosphatase 48 U/L (40-150); Anion Gap 11 mmol/L (10-20); BUN (Urea Nitrogen) 12 mg/dL (9.8-20.1); Bilirubin, Total 0.5 mg/dL (0.2-1.2); Calc. Creatinine Clearance 0 mL/min (70-130); Calcium 9.4 mg/dL (7.8-10.44); Carbon Dioxide 26 mmol/L (23-31); Chloride 103 mmol/L (98-107); Estimated GFR-MDRD 43; Globulin 2.6 g/dL (2.4-3.5); Glucose 87 mg/dL (83-110); Potassium 3.8 mmol/L (3.5-5.1); Protein, Total 6.1 g/dL (6.0-8.3); Sodium 136 mmol/L (136-145)
--- NOTE | 2018-11-26 08:01 | CT ---
CT ABDOMEN AND PELVIS WITHOUT IV CONTRAST: Date: 11/26/18 INDICATION: History of fall with right hip pain and abdominal pain. COMPARISON: CT abdomen and pelvis dated 11/21/18 and 09/22/18. FINDINGS: There are new small bilateral pleural effusions and stable small pericardial effusions. The lack of IV contrast limits evaluation of the solid organs of the abdomen. There are stable suspected bilateral renal cysts. The gallbladder is surgically absent. There are benny cified granuloma within the liver and spleen. There is new moderate right hydronephrosis and proximal right hydroureter. The distal right ureter is of normal caliber. This transitions at a level of prominent proctocolitis of the distal sigmoid colo n and rectum, and may be related to mass effect from the dilated sigmoid colon and rectum, or possibl y the inflammation causing narrowing of the distal right ureter. The extent of the proctocolitis has worsened since 11/21/18. The dilated portions of the sigmoid colo n, proximal transverse colon, and portions of the ascending colon are stable. The small bowel is of n ormal caliber. There is moderate to severe vascular calcification involving the abdominopelvic vasculature. The blad tim is moderately distended. There is diffuse anasarca. There is a healed fracture deformity involving the right femoral neck region. There is diffuse osteop enia. There is thoracolumbar scoliosis. There is scattered degenerative change. No acute osseous abno rmality is evident. IMPRESSION: 1. Findings of volume overload, third spacing or CHF as there are small bilateral pleural effusions, pericardial effusions, and anasarca. 2. New moderate right hydronephrosis with moderate proximal right hydroureter. The ureter transition s at the level of an inflamed region of the rectum and sigmoid colon and the obstruction is likely re lated to mass effect from the dilated rectum and sigmoid colon, or possibly from inflammation. 3. Worsening proctocolitis. 4. Stable dilatations of portions of the colon. 5. Healed fracture deformity of the right hip is stable to the comparison. POS: [facility]
[2018-11-26] MEDS ORDERED: Sodium Chloride 0.9% 1,000 ML IV SCH (08:15)
[2018-11-26] MEDS ORDERED: Levothyroxine Sodium 75 MCG TAB PO SCH (09:00)
[2018-11-26] MEDS ORDERED: Acetaminophen 325 MG TAB PO PRN (09:01)
--- NOTE | 2018-11-26 09:33 | RAD ---
RIGHT HIP 3 VIEWS: Date: 11/26/18 INDICATION: Fall. FINDINGS: There is deformity of the right femoral neck, which appears to represent old, healed fracture. This d eformity is stable when compared to abdominal films of 11/22/18. No acute fracture identified. IMPRESSION: Degenerative changes at the right hip with deformity indicating old hip fracture. The deformity appea rs stable as noted above. POS: OFF
--- NOTE | 2018-11-26 09:34 | RAD ---
AP PELVIS: Date: 11/26/18 HISTORY: Fall with injury. Comparison made to abdominal film, which includes the pelvis, dated 11/22/18. FINDINGS/IMPRESSION: Deformity of the right hip appears stable. Degenerative change at both hips appear stable. No acute f racture identified. POS: OFF
[2018-11-26] MEDS ORDERED: Losartan 25 MG TAB PO SCH (10:15)
[2018-11-26] MEDS ORDERED: Hydrochlorothiazide 25 MG TAB PO SCH (10:15)
[2018-11-26] MEDS: Heparin 5,000 UNITS/ML VIAL SC SCH ×2 (16:14→21:19)
[2018-11-26] MEDS ORDERED: Milk Of Magnesia 30 ML UDCUP PO PRN (18:08)
[2018-11-26] MEDS ORDERED: Simethicone Chewable 80 MG TAB PO PRN (18:08)
[2018-11-26] MEDS ORDERED: Famotidine 20 MG TAB PO SCH (21:00)
[2018-11-26] MEDS ORDERED: traZODone HCl 50 MG TAB PO SCH (21:00)
[2018-11-26] MEDS: Aripiprazole 10 MG TAB PO SCH (21:19)
[2018-11-26] MEDS: Donepezil HCl 10 MG TAB PO SCH (21:19)
--- NOTE | 2018-11-27 03:28 | CON ---
DATE OF CONSULTATION: 11/26/2018 CHIEF COMPLAINT: Fall and abdominal distention. HISTORY OF PRESENT ILLNESS: Ms. Velasco is an 88-year-old woman, who was just discharged from the hospital after being admitted with Carroll syndrome. She underwent colonic decompression by colonoscopy with colonic decompression tube placement on 11/22/2018. Her abdominal distention improved, and she was passing stools and she was eating and she was allowed to be discharged to the shelter under hospice care. After discharge to the shelter, she fell and had a gash in her head and came back to the emergency room and had that stitched up. She went back to the shelter and then apparently last night was sent back to the emergency room for unclear reasons to me, but apparently related to her abdominal distention. The patient's family reports they were feeding her at the shelter and she was eating well. The stool output is not known. She has had no blood in the stool. No vomiting. Her abdomen is actually much less distended now than when she left the hospital the first time. PAST MEDICAL HISTORY: Recent admission with Carroll syndrome, hypothyroidism, B12 deficiency, dementia, depression, hypertension, acid reflux, and chronic constipation. PAST SURGICAL HISTORY: Not known. FAMILY HISTORY: Not known. SOCIAL HISTORY: No alcohol, tobacco, or drugs. ALLERGIES: NO KNOWN DRUG ALLERGIES. MEDICATIONS: 1. Abilify. 2. B12. 3. Donepezil. 4. Escitalopram. 5. Famotidine. 6. Heparin. 7. Hydrochlorothiazide. 8. Levothyroxine. 9. Losartan. 10. Remeron. 11. Milk of magnesia as needed. 12. Pantoprazole. 13. Simethicone. 14. Trazodone. REVIEW OF SYSTEMS: Unobtainable. PHYSICAL EXAMINATION: VITAL SIGNS: Temperature 98.5, pulse is 90, and blood pressure 155/86. GENERAL: She is in no acute distress. She is not verbally interactive. LUNGS: Clear to auscultation bilaterally. HEART: Regular rate and rhythm. ABDOMEN: Soft, minimally distended. Bowel sounds are present. EXTREMITIES: No lower extremity edema. RECTAL: Reveals no stool in the rectal vault with small amount of liquid green stool on the glove. Her anal sphincter tone is tight. EXTREMITIES: No lower extremity edema. LABORATORY DATA: White blood cell count 7.3, hemoglobin 11.6, and platelets 215. Creatinine 1.18. IMPRESSION: 1. Recent hospitalization with Carroll syndrome. This appears resolved at this point. Her abdominal distention is minimal clinically. She did have a CT on presentation this morning that showed some inflammatory changes of the sigmoid and rectum; however, this was just reviewed recently endoscopically that did not show any major issues here. She has no blood in the rectal vault. She has been eating fine prior to admission according to her family. 2. Dementia, end-stage. 3. Tight anal sphincter tone and constipation. RECOMMENDATIONS: 1. Start MiraLAX daily. 2. Advance diet. 3. She can be discharged at any point from a GI perspective. I will sign off. Please call if GI can be of assistance. Job ID: [id number]
[2018-11-27 05:02] LABS: #Basophils 0.1 thou/uL (0.0-0.2); #Eosinphils 0.2 thou/uL (0.0-0.7); #Monocytes 0.4 thou/uL (0.11-0.59); #Neutrophils 2.5 thou/uL (1.40-6.50); %Eosinophils 4.1 % (0.0-10.0); %Lymphocytes 39.4 % (21.0-51.0); %Monocytes 6.9 % (0.0-10.0); %Neutrophils 48.6 % (42.0-75.0); Hemoglobin 10.4 g/dL (12.0-16.0); Mean Corpuscular HGB CONC 33.9 g/dL (32.0-36.0); Mean Corpuscular Hemoglobin 30.1 pg (27.0-31.0); Mean Corpuscular Volume 88.8 fL (78.0-98.0); Mean Platelet Volume 8.5 fL (7.4-10.4); Platelet Count 216 thou/uL (130-400); Red Blood Cell (RBC) Count 3.46 mill/uL (4.20-5.40); White Blood Cell (WBC) Count 5.1 thou/uL (4.8-10.8)
[2018-11-27 05:24] LABS: ALT (SGPT) 9 U/L (8-55); AST (SGOT) 19 U/L (5-34); Albumin 3.2 g/dL (3.4-4.8); Alkaline Phosphatase 44 U/L (40-150); Anion Gap 11 mmol/L (10-20); BUN (Urea Nitrogen) 10 mg/dL (9.8-20.1); Bilirubin, Total 0.6 mg/dL (0.2-1.2); Calc. Creatinine Clearance 25 mL/min (70-130); Calcium 8.6 mg/dL (7.8-10.44); Carbon Dioxide 24 mmol/L (23-31); Chloride 105 mmol/L (98-107); Estimated GFR-MDRD 48; Globulin 2.4 g/dL (2.4-3.5); Glucose 71 mg/dL (83-110); Potassium 3.6 mmol/L (3.5-5.1); Protein, Total 5.6 g/dL (6.0-8.3); Sodium 136 mmol/L (136-145)
[2018-11-27] MEDS: Levothyroxine Sodium 75 MCG TAB PO SCH (06:12)
[2018-11-27] MEDS: Famotidine 20 MG TAB PO SCH (08:28)
[2018-11-27] MEDS: Escitalopram Oxalate 20 mg Tablet PO SCH (08:28)
[2018-11-27] MEDS: Hydrochlorothiazide 25 MG TAB PO SCH (08:28)
[2018-11-27] MEDS: Losartan 25 MG TAB PO SCH (08:28)
[2018-11-27] MEDS: Cyanocobalamin (Vitamin B-12) 1,000 MCG TAB PO SCH (08:28)
[2018-11-27] MEDS: Mirtazapine 15 MG TAB PO SCH (08:28)
[2018-11-27] MEDS: Heparin 5,000 UNITS/ML VIAL SC SCH ×3 (08:29→21:30)
[2018-11-27] MEDS: Polyethylene Glycol 3350 17 GM Packet PO SCH (08:52)
--- NOTE | 2018-11-27 10:48 | PRG ---
DATE OF SERVICE: 11/27/2018 She is do not resuscitate status. SUBJECTIVE: The patient does not have much complaints to offer. OBJECTIVE: VITAL SIGNS: Blood pressure is 165/90, pulse is 69, respirations 16, O2 saturation is 92% on room air. Her temperature is 97.6, maximal temperature is 98.5. HEENT: Her head is post fall, post trauma with laceration above her left eye, part of her forehead which was sutured. The patient does not want to open her eyes much and she does not follow my recommendations or commands all the way, although she appears to try. LUNGS: Clear. HEART: S1 and S2 normal. There is a systolic murmur 2/6 at the left sternal border, mostly audible. ABDOMEN: Soft, nontender, somewhat distended. Bowel sounds are present. No organomegaly. EXTREMITIES: No clubbing, cyanosis, or edema. NEUROLOGICAL: She does not speak Luxembourger, but I am able to talk to her in Monegasque. She tries to follow my simple commands, but she seems to be quite limited in her mental function. Most likely, she has dementia. LABORATORY DATA: White count of 5.1, hemoglobin 10.4, hematocrit 30.7, and platelet count 216. Normal electrolytes. Creatinine 1.07, BUN of 10, glucose 71, total protein 5.6, albumin 3.2, and the rest of chemistry is within normal limits. IMPRESSION: 1. Abdominal distention and recent hospitalization with Carroll syndrome, apparently resolved. The patient was seen by Dr. Perez for GI consultation and he recommends to [facility] as this is feasible. 2. Dementia. 3. Small bilateral pleural effusion per x-rays. 4. New moderate right hydronephrosis with moderate proximal right hydroureter, which is felt to be mass effect from the dilated rectum and sigmoid colon. Apparently, she was scoped recently and there was no any inflammatory process in this area. 5. Hypothyroidism. 6. Vitamin B12 deficiency. 7. History of depression. 8. Hypertension. 9. Gastroesophageal reflux disease. 10. Constipation per history. PLAN: The family does not want her to go back to the [facility]entiary she came from, so we will have shoe parts caser to work on placement and finding different penitentiary, which would accept her. In the meantime, we will try to feed her and see how she tolerates food. There was some suggestion on the CT of the abdomen and pelvis that she is fluid overloaded with some bilateral pleural effusion. We will do the chest x-ray and check BNP to address her volume status, and we will obtain echocardiogram. She will continue on her current medications she was taking at the [facility] and I am going to stop her trazodone, which is probably the main cause of her constipation, and we will continue MiraLAX as Dr. Perez recommended. Job ID: [id number]
--- NOTE | 2018-11-27 12:19 | RAD ---
ONE VIEW CHEST: HISTORY: Pleural effusion. COMPARISON: 03/22/2018. FINDINGS: Atherosclerosis of the aortic knob. Normal cardiac silhouette. Pulmonary vessels and hilum are norm al. Costophrenic angles are clear. Lung volumes are diminished, likely due to poor inspiratory effo rt. No masses or consolidation. No pneumothorax or acute osseous abnormalities. IMPRESSION: 1. No acute cardiopulmonary process. 2. Diminished lung volumes, likely due to poor inspiratory effort. 3. Atherosclerosis of the aortic knob. POS: OFF
[2018-11-27] MEDS: Donepezil HCl 10 MG TAB PO SCH (21:29)
[2018-11-27] MEDS: Aripiprazole 10 MG TAB PO SCH (21:29)
[2018-11-28] MEDS ORDERED: Labetalol HCl 100 MG/20 ML VIAL SLOW IVP PRN (01:19)
[2018-11-28 04:54] LABS: #Basophils 0.1 thou/uL (0.0-0.2); #Eosinphils 0.1 thou/uL (0.0-0.7); #Lymphocytes 2.4 thou/uL (1.20-3.40); #Monocytes 0.4 thou/uL (0.11-0.59); #Neutrophils 3.8 thou/uL (1.40-6.50); %Basophils 0.7 % (0.0-1.0); %Eosinophils 1.8 % (0.0-10.0); %Lymphocytes 35.2 % (21.0-51.0); %Monocytes 6.1 % (0.0-10.0); %Neutrophils 56.1 % (42.0-75.0); Hemoglobin 10.9 g/dL (12.0-16.0); Mean Corpuscular HGB CONC 33.4 g/dL (32.0-36.0); Mean Corpuscular Hemoglobin 29.7 pg (27.0-31.0); Mean Corpuscular Volume 88.8 fL (78.0-98.0); Mean Platelet Volume 7.8 fL (7.4-10.4); Platelet Count 225 thou/uL (130-400); RBC Distribution Width 12.2 % (11.5-14.5); Red Blood Cell (RBC) Count 3.68 mill/uL (4.20-5.40); White Blood Cell (WBC) Count 6.9 thou/uL (4.8-10.8)
[2018-11-28] MEDS: Levothyroxine Sodium 75 MCG TAB PO SCH (06:10)
--- NOTE | 2018-11-28 07:06 | HP ---
PRIMARY CARE PHYSICIAN: Dr. Guerrero. CHIEF COMPLAINT: Fall, abdomen distention. HISTORY OF PRESENT ILLNESS: This is an 88-year-old female with a past medical history of Eagle syndrome, hypothyroidism, dementia, depression, hypertension, who came to the hospital overnight for 2 falls, sustained a laceration over her left eyebrow. There was concern for a hip fracture, although on CT scan, there was noted only a healed fracture deformity of the right hip, which was stable when compared to the last imaging, but she did have some findings of volume overload, CHF, small bilateral pleural effusions, pericardial effusions, anasarca, new moderate right hydronephrosis with moderate proximal right hydroureter. The ureter transitioned to the level of inflamed region at the rectum and sigmoid colon and is likely related to mass effect, worsening proctocolitis, and another stable dilatations of the portion of the colon. As the patient had been admitted to the ER twice for fall, the patient was admitted and further distention and worsening proctocolitis on the CT scan. The patient was admitted to the medical floor for further evaluation. REVIEW OF SYSTEMS: Unable to obtain. The patient has dementia and is not able to give a history. PAST MEDICAL HISTORY: As mentioned in the HPI. PAST SURGICAL HISTORY: Did have a lower GI scope with decompression on the last visit and she is admitted on 11/21/2018 for similar complaints. Otherwise, unable to obtain history. PSYCHIATRIC HISTORY: Has dementia. SOCIAL HISTORY: The patient lives in a long-term care facility. ALLERGIES: NONE. HOME MEDICATIONS: 1. Tylenol 1000 mg p.o. q.6 hours as needed. 2. Abilify 10 mg p.o. h.s. 3. Scopolamine 1000 mcg p.o. daily. 4. Colace p.o. daily. 5. Donepezil 10 mg p.o. h.s. 6. Lexapro 20 mg p.o. daily. 7. Hydrochlorothiazide 12.5 mg p.o. daily. 8. Levothyroxine 25 mcg p.o. daily. 9. Linzess 290 mcg p.o. daily. 10. Losartan 100 mg p.o. daily. 11. Milk of magnesia 30 mL p.o. daily. 12. Mirtazapine 15 mg p.o. daily. 13. Prilosec 40 mg p.o. daily. 14. MiraLAX p.o. daily. 15. Simethicone 40 mg p.o. q.i.d. 16. Trazodone 50 mg p.o. h.s. PHYSICAL EXAMINATION: VITAL SIGNS: Blood pressure 183/110, pulse is 80, respirations are 22, temperature is 98.1. Pain is unable to determine, although when asked, she says she is fine. PO2 saturations are 96% on room air. CONSTITUTIONAL: The patient is hypertensive, otherwise appears nontoxic. She appears pain-free. HEENT: Head; there is a repaired laceration over the left eyebrow. Wound is well approximated, otherwise normocephalic. Eyes; pupils are equally round and reactive to light. Extraocular muscles are intact. ENT; mouth exam is normal. Mucous membranes are moist. NECK: Normal range of motion. Trachea is midline. RESPIRATORY: Chest movement is symmetrical. Chest expansion is equal. CARDIOVASCULAR: Regular heart rate and rhythm. Heart sounds are normal. ABDOMEN: Soft. There is some distention that is noted. Bowel sounds are heard. EXTREMITIES: Upper extremity; normal range of motion. Motor strength is normal. Lower extremity; there is no pain with movement of the right hip. Distal pulses are intact. There is no edema. Normal range of motion. NEUROLOGIC: The patient's exam consistent with the patient's history of dementia. She is at baseline. There is no gross facial asymmetry. SKIN: Visualized skin is warm, dry, normal in color. There is a healed or a sutured laceration over the left eyebrow. There are no signs of infection. LABORATORY FINDINGS: White blood cell count is 7.3, hemoglobin 11.6, hematocrit is 34.2. Sodium is 136, potassium 3.8, BUN 12, creatinine is 1.18, which is slightly worse than it was on 12/22/2011, which was 0.95. All other labs are within normal limits. PLAN/ASSESSMENT: 1. 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 The patient does have some worsening distention today. Dr. Perez has been consulted and will see the patient. We will follow his recommendations. 2. History of dementia. Supportive care as an inpatient. 3. Hypothyroidism. We will continue hormone replacement. 4. History of depression. This is chronic, appears stable. We will reconcile home medications. 5. History of gastroesophageal reflux disease. Reconcile home medications. 6. Uncontrolled hypertension with systolic blood pressure above 170. We will reconcile home medications. We will add p.r.n. medication for hypertension as needed. 7. Deep vein thrombosis prophylaxis has been started. We have ordered a Case Management consult and conversation with the granddaughter, who verified the DNR status. Also stated family was very concerned that this patient has had 2 falls, they are concurrent at long-term care facility, and they were considering placement somewhere else, so we would appreciate Case Management involvement in this. Case will be discussed with Dr. Reveles for any other recommendations. 8. Hospital course dependent on clinical findings. Job ID: [id number]
[2018-11-28] MEDS: Famotidine 20 MG TAB PO SCH (08:59)
[2018-11-28] MEDS: Hydrochlorothiazide 25 MG TAB PO SCH (08:59)
[2018-11-28] MEDS: Mirtazapine 15 MG TAB PO SCH (09:00)
[2018-11-28] MEDS ORDERED: Amlodipine 5 MG TAB PO SCH (09:00)
[2018-11-28] MEDS: Cyanocobalamin (Vitamin B-12) 1,000 MCG TAB PO SCH (09:00)
[2018-11-28] MEDS: Losartan 25 MG TAB PO SCH (09:03)
[2018-11-28] MEDS: Escitalopram Oxalate 20 mg Tablet PO SCH (09:03)
[2018-11-28] MEDS: Heparin 5,000 UNITS/ML VIAL SC SCH ×3 (09:03→21:03)
[2018-11-28] MEDS: Polyethylene Glycol 3350 17 GM Packet PO SCH (09:04)
--- NOTE | 2018-11-28 09:14 | PRG ---
DATE OF SERVICE: 11/28/2018 SUBJECTIVE: Two family members are present in the room during my visit, and she was fed this morning, but it was stopped since her abdominal distention was noticed. She does not complain about any abdominal pain at this point. OBJECTIVE: VITAL SIGNS: Blood pressure is 155/86, pulse is 90, respirations are 16, O2 saturation is 93% on room air. Her temperature is 98.5. HEENT: Sclerae nonicteric. Oral mucosa is moist. NECK: Supple. LUNGS: Clear. HEART: S1 and S2, normal. ABDOMEN: Soft, nontender, although somewhat distended. Bowel sounds are present and normal. EXTREMITIES: No clubbing, cyanosis, or edema. NEUROLOGICAL: She tries to follow my commands. She moves all 4 extremities. LABORATORY DATA: Labs showed white count of 6.9, hemoglobin of 10.9, hematocrit is 32.7, platelet count is 225,000. IMAGING STUDIES: Chest x-ray did not show any acute cardiopulmonary process. Some atherosclerosis of the aorta. There is some dilatation of the colon loops. IMPRESSION: 1. Abdominal distention and the recent hospitalization with Carroll syndrome. This morning, we are running into some issues again, after she was fed. We will wait and see how she does with her lunch. If she is still distended, we will recall Dr. Perez to come back and see her for GI evaluation. 2. Dementia. 3. Small bilateral pleural effusions per x-ray, not on most current one. 4. New moderate right hydronephrosis with moderate proximal right hydroureter, which was felt to be mass effect from the dilated rectum and sigmoid colon. 5. Hypothyroidism, on replacement. 6. Vitamin B12 deficiency. 7. History of depression. 8. Hypertension. 9. Gastroesophageal reflux disease. 10. Constipation per history. PLAN: We will have a foster care case manager to work on a senior living placement. The family does want her to go back to the previous place, where she used to live. The patient is on MiraLAX as Dr. Perez recommended. The family does not want to have any aggressive treatment. No operations. They wanted to do more conservative management. We will wait with her feeding and see how she does with the next meal. If she is still distended, we are going to re-call Dr. Perez. Job ID: [id number]
[2018-11-28] MEDS: Aripiprazole 10 MG TAB PO SCH (21:03)
[2018-11-28] MEDS: Donepezil HCl 10 MG TAB PO SCH (21:03)
[2018-11-29] MEDS: Levothyroxine Sodium 75 MCG TAB PO SCH (05:54)
[2018-11-29] MEDS: Escitalopram Oxalate 20 mg Tablet PO SCH (09:47)
[2018-11-29] MEDS: Pantoprazole 40 MG GRANULES PACKET PO SCH (09:47)
[2018-11-29] MEDS: Amlodipine 10 MG TAB PO SCH (09:47)
[2018-11-29] MEDS: Hydrochlorothiazide 25 MG TAB PO SCH (09:47)
[2018-11-29] MEDS: Cyanocobalamin (Vitamin B-12) 1,000 MCG TAB PO SCH (09:48)
[2018-11-29] MEDS: Famotidine 20 MG TAB PO SCH (09:48)
[2018-11-29] MEDS: Mirtazapine 15 MG TAB PO SCH (09:48)
[2018-11-29] MEDS: Losartan 25 MG TAB PO SCH (09:48)
[2018-11-29] MEDS: Heparin 5,000 UNITS/ML VIAL SC SCH ×3 (09:55→21:30)
[2018-11-29] MEDS: Polyethylene Glycol 3350 17 GM Packet PO SCH (09:59)
--- NOTE | 2018-11-29 15:30 | PRG ---
DATE OF SERVICE: 11/29/2018 SUBJECTIVE: The patient is seen and examined at bedside. She does not have much complaints to offer, and she does not have any abdominal pain. According to the nurse, she does not eat much. The family is concerned about her abdomen, which is significantly distended today and yesterday. OBJECTIVE: VITAL SIGNS: Blood pressure is 117/75, pulse is 97, temperature is 97.5, respirations 18, O2 saturation is 91% on room air. HEENT: Her sclerae are nonicteric. Oral mucosa is moist. NECK: Supple. LUNGS: Breath sounds diminished at both bases. HEART: S1, S2 normal. No S3. No S4. ABDOMEN: Soft. It is distended. Bowel sounds are present, but they are normal. They are not tympanic. EXTREMITIES: No clubbing, cyanosis, or edema. NEUROLOGICAL: She follows my simple commands, but she has quite advanced dementia. LABORATORY DATA: None today. IMPRESSION: 1. Abdominal distention on recent hospitalization with [place] syndrome. The patient's abdominal distention is . We will re-consult Dr. Perez for GI evaluation. 2. Dementia. 3. Small bilateral pleural effusion per x-ray. 4. New moderate right hydronephrosis with moderate proximal right hydroureter, which is most likely improved since the obstruction was relieved for at least couple of days. 5. Hypothyroidism, on replacement. 6. Vitamin B12 deficiency. 7. History of depression. 8. Hypertension. 9. Gastroesophageal reflux disease. 10. Constipation per history. PLAN: We are going to recall GI for her recurrent abdominal distention, although she does not have any pain, but the family is concerned that this might get worse and when she starts eating more. For now, we will continue her other regimen with Lexapro, Abilify, amlodipine, levothyroxine, losartan, magnesium, mirtazapine, pantoprazole, and DVT prophylaxis with SCDs, and heparin. Job ID: [id number]
[2018-11-29] MEDS: Aripiprazole 10 MG TAB PO SCH (21:30)
[2018-11-29] MEDS: Donepezil HCl 10 MG TAB PO SCH (21:30)
[2018-11-30] MEDS: Levothyroxine Sodium 75 MCG TAB PO SCH (05:32)
[2018-11-30] MEDS: Mirtazapine 15 MG TAB PO SCH (09:13)
[2018-11-30] MEDS: Losartan 25 MG TAB PO SCH (09:13)
[2018-11-30] MEDS: Heparin 5,000 UNITS/ML VIAL SC SCH ×3 (09:13→22:03)
[2018-11-30] MEDS: Hydrochlorothiazide 25 MG TAB PO SCH (09:13)
[2018-11-30] MEDS: Escitalopram Oxalate 20 mg Tablet PO SCH (09:14)
[2018-11-30] MEDS: Amlodipine 10 MG TAB PO SCH (09:14)
[2018-11-30] MEDS: Famotidine 20 MG TAB PO SCH (09:14)
[2018-11-30] MEDS: Cyanocobalamin (Vitamin B-12) 1,000 MCG TAB PO SCH (09:14)
[2018-11-30] MEDS: Pantoprazole 40 MG GRANULES PACKET PO SCH (09:15)
[2018-11-30] MEDS: Polyethylene Glycol 3350 17 GM Packet PO SCH (09:15)
--- NOTE | 2018-11-30 11:32 | PRG ---
DATE OF SERVICE: 11/30/2018 SUBJECTIVE: The patient is seen and examined at the bedside. She is only speaking Syriac, but we can still communicate pretty well. She does not have any pain. Her abdomen is somewhat distended, but this does not bother her much. The rectal tube is in place. OBJECTIVE: VITAL SIGNS: Blood pressure is 119/73, pulse is 86, temperature is 97.7, respiratory rate is 15, and O2 saturation is 92% on room air. HEENT: Her sclerae are nonicteric. Oral mucosa is slightly dry. NECK: Supple. LUNGS: Clear. HEART: S1 and S2. Slightly irregular. No S3. No S4. ABDOMEN: Distended but soft, nontender. Bowel sounds are quite active. EXTREMITIES: No clubbing, cyanosis, or edema. NEUROLOGIC: She follows my commands. She moves her all 4 extremities. LABORATORY DATA: None today. We will get some basic labs. IMPRESSION: 1. Abdominal distention secondary to [place] syndrome. The GI was reconsulted since she had recurrent abdominal distention. Rectal tube was placed and she seems to be tolerating that. Her oral intake this morning was about 75%. She tolerated that without any major problems. We will continue the current approach recommended by GI. 2. Dementia. 3. Small bilateral pleural effusion per x-ray. 4. Hypothyroidism, on replacement. 5. Vitamin B12 deficiency. 6. History of depression. 7. Hypertension. 8. Gastroesophageal reflux disease. 9. Constipation per history. PLAN: We are trying to obtain jail placement. services manager is working on that. In the meantime, the rectal tube is in place and that seems to be helping her to some extent. We will continue her other medications. We will continue DVT prophylaxis, and she should be able to go back to the jail whenever she is [facility] from [facility]. Job ID: [id number]
--- NOTE | 2018-11-30 16:03 | PRG ---
DATE OF SERVICE: 11/30/2018 SUBJECTIVE: Ms. Velasco is tolerating an oral diet. OBJECTIVE: VITAL SIGNS: Temperature is 98.6, pulse 78, blood pressure 135/82. GENERAL: She is in no acute distress. Awake and responsive. LUNGS: Clear to auscultation bilaterally. HEART: Regular rate and rhythm. ABDOMEN: Soft and nondistended at this time. She has rectal tube in place with no stool in it. EXTREMITIES: No lower extremity edema. IMPRESSION: [place] syndrome, improved with rectal tube. She may benefit from limiting the SSRIs. Also consider discontinuing the Aricept. RECOMMENDATIONS: 1. Continue MiraLAX. 2. Discontinue rectal tube. 3. Plan is to discharge home to hospice today or tomorrow. 4. I will be available if needed. Please call if GI can be of assistance. Job ID: [id number]
[2018-11-30] MEDS: Donepezil HCl 10 MG TAB PO SCH (22:03)
[2018-11-30] MEDS: Aripiprazole 10 MG TAB PO SCH (22:03)
[2018-12-01] MEDS: Levothyroxine Sodium 75 MCG TAB PO SCH (05:57)
[2018-12-01] MEDS: Mirtazapine 15 MG TAB PO SCH (10:00)
[2018-12-01] MEDS: Amlodipine 10 MG TAB PO SCH (10:00)
[2018-12-01] MEDS: Pantoprazole 40 MG GRANULES PACKET PO SCH (10:00)
[2018-12-01] MEDS: Losartan 25 MG TAB PO SCH (10:00)
[2018-12-01] MEDS: Cyanocobalamin (Vitamin B-12) 1,000 MCG TAB PO SCH (10:00)
[2018-12-01] MEDS: Hydrochlorothiazide 25 MG TAB PO SCH (10:00)
[2018-12-01] MEDS: Escitalopram Oxalate 20 mg Tablet PO SCH (10:01)
[2018-12-01] MEDS: Polyethylene Glycol 3350 17 GM Packet PO SCH (10:01)
[2018-12-01] MEDS: Famotidine 20 MG TAB PO SCH (10:01)
[2018-12-01] MEDS: Heparin 5,000 UNITS/ML VIAL SC SCH ×3 (10:01→20:28)
[2018-12-01] MEDS: Donepezil HCl 10 MG TAB PO SCH (20:28)
[2018-12-01] MEDS: Aripiprazole 10 MG TAB PO SCH (20:28)
--- NOTE | 2018-12-02 02:31 | DIS ---
DATE OF ADMISSION: 11/26/2018 DATE OF DISCHARGE: 12/01/2018 DIAGNOSES AT THE TIME OF DISCHARGE: 1. [place] syndrome, improved. 2. Dementia, quite advanced. 3. Hypothyroidism. 4. Vitamin B12 deficiency. 5. History of depression. 6. Hypertension. 7. Gastroesophageal reflux disease. 8. Constipation per history. CONSULTANTS: Dr. Perez, Gastrointestinal Service. HOSPITAL COURSE: The patient is an 88-year-old female with past medical history of [place] syndrome, hypothyroidism, dementia, depression, hypertension, who came to the emergency room after she had some falls and sustained laceration over her left eyebrow. There was concern for hip fracture, so the CT scan was done and there was noted only healed fracture deformity of the right hip which was stable, but there was some evidence of volume overload, CHF, and small bilateral pleural effusions with pericardial effusions, anasarca, new moderate right hydronephrosis with moderate proximal right hydroureter. 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 The patient got admitted to the medical floor. At the time of admission, her white count was 7.3, hemoglobin 11.6, hematocrit 34.2, sodium was 136, potassium 3.8, chloride , creatinine 1.18. GI freight traffic consultant was called and the patient was seen by Dr. Perez. Apparently, her abdominal distention resolved and the family did not want to do any aggressive interventions. Subsequently after the patient was fed, her abdominal distention came back and she required a rectal tube to be placed, which helped to some extent and she was able to tolerate her feeding relatively well without any significant problems. The family requested different long term placement and the rn case manager hospice was able to arrange placement in [facility] and she is going to be transferred there today. She will stay on low-salt diet with modifications per dietitian. MEDICATIONS: At the time of discharge: 1. Amlodipine 10 mg once a day. 2. Abilify 10 mg at bedtime. 3. Vitamin B12 of 1000 mcg once a day. 4. Docusate sodium 100 mg daily. 5. Escitalopram 20 mg daily. 6. Hydrochlorothiazide one a day. 7. Levothyroxine 75 mcg once a day. 8. Losartan 100 mg once a day. 9. Trazodone 50 mg at bedtime. 10. Mirtazapine 50 mg daily. 11. Linzess 290 mcg daily. 12. Polyethylene glycol 17 g once a day. 13. Mylicon 40 mg q.i.d. p.r.n. 14. Magnesium hydroxide daily p.r.n. She is discharged to the long term in good condition. She was seen and examined before she was discharged. TIME SPENT: Discharge time is less than 30 minutes. Job ID: [id number]
[2018-12-02] MEDS: Levothyroxine Sodium 75 MCG TAB PO SCH (05:14)
[2018-12-02] MEDS: Polyethylene Glycol 3350 17 GM Packet PO SCH (08:55)
[2018-12-02] MEDS: Amlodipine 10 MG TAB PO SCH (08:55)
[2018-12-02] MEDS: Losartan 25 MG TAB PO SCH (08:56)
[2018-12-02] MEDS: Hydrochlorothiazide 25 MG TAB PO SCH (08:56)
[2018-12-02] MEDS: Cyanocobalamin (Vitamin B-12) 1,000 MCG TAB PO SCH (08:56)
[2018-12-02] MEDS: Famotidine 20 MG TAB PO SCH (08:57)
[2018-12-02] MEDS: Mirtazapine 15 MG TAB PO SCH (08:57)
[2018-12-02] MEDS: Escitalopram Oxalate 20 mg Tablet PO SCH (08:57)
[2018-12-02] MEDS: Pantoprazole 40 MG GRANULES PACKET PO SCH (08:57)
[2018-12-02] MEDS: Heparin 5,000 UNITS/ML VIAL SC SCH (08:57)
[2018-12-02 12:12] VITALS: BP 132/79; TEMP 97.7
--- NOTE | 2018-12-06 09:50 | PQF ---
[facility] [employer] Specialist Crystal Reports Winform ViewerTURRUBIATES,NICANOR HUBER AKBAR MD [id number] SURG B- [id number] CLINICAL DOCUMENTATION CLARIFICATION FORM: POST DISCHARGE Addendum to original discharge summary date: ____ Late entry note date: __ DATE: 12/06/2018 ATTN:HUBER AKBAR MD Please exercise your independent, professional judgment in responding to the clarification form. Clinical indicators are provided on the bottom of this form for your review Please check appropriate box(s): [x ] Abdomen distention due to [place] syndrome [ ] Abdomen distention not due to [place] syndrome [ ] Other diagnosis [ ] Unable to determine For continuity of documentation, please document condition throughout progress notes and discharge summary. Thank You. 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 Perez-DS, 12/01, HUBER AKBAR MD - Protonix.PO-11/29 - Hydrochlorothiazide-11/29 (This form is maintained as a part of the permanent medical record) 2014 [employer]. All Rights Reserved [employer] [not provided] [not provided] MTDD
== END 2018-12-02 11:40 | DRG 389 ==
LOC: ERS 03:52 → SURG B 06:27
PROVIDERS: ADMIT Internal Medicine; ATTEND Internal Medicine
DX: K56.699 Other intestinal obstruction unspecified as to partial versus complete obstruction (principal); N13.30 Unspecified hydronephrosis; K51.30 Ulcerative (chronic) rectosigmoiditis without complications; E03.9 Hypothyroidism, unspecified; E53.8 Deficiency of other specified B group vitamins; F03.90 Unspecified dementia, unspecified severity, without behavioral disturbance, psychotic disturbance, mood disturbance, and anxiety; F32.9 Major depressive disorder, single episode, unspecified; I10 Essential (primary) hypertension; K21.9 Gastro-esophageal reflux disease without esophagitis; K59.09 Other constipation
CPT/HCPCS: 12004; 36415; 70450; 71045; 72125; 72170; 74176; 80053; 83605; 85025; 90471; J1644; J2001